=== PATIENT | female | born 2000 | race African-American/Black ===

== ENCOUNTER 2025-02-07 11:51 | Emergency (ER) | payer MEDICAID ==
[~2025-02-07] VITALS: Ht 162.6 cm; Wt 81.8 kg
[2025-02-07 11:59] VITALS: TEMP 98
[2025-02-07] MEDS: IBUPROFEN 400 MG TABLET PO ONE (12:41)
[2025-02-07 12:48] VITALS: BP 118/75; PULSE 72; RESP 16; O2SAT 100
[2025-02-07] MEDS ORDERED: IBUP-1506 PO (12:49)
== END 2025-02-07 12:49 | disposition home or self-care (01) ==
LOC: EMS 11:58
DX: H00.011 Hordeolum externum right upper eyelid (principal)
CPT/HCPCS: 99282; Z7502; Z7610